=== PATIENT | male | born 1990 | race Caucasian/White ===

== ENCOUNTER 2024-04-05 13:04 | Emergency (ER) | payer OTHER, SELFPAY ==
--- NOTE | ~2024-04-05 | CT_ITS ---
EXAMINATION: CT ABDOMEN AND PELVIS WITH CONTRAST CLINICAL INFORMATION: Abdominal pain COMPARISON: None available. TECHNIQUE: Multidetector volumetric images were obtained from the superior aspect of the liver through the pubic symphysis following administration 85 mL of Omnipaque 350 intravenous contrast. Sagittal and coronal reformatted images were obtained on the technologist's workstation. Oral contrast: No This CT examination was performed using dose optimization techniques as appropriate, variously including the following: *Automated exposure control *Adjustment of mA and/or kV according to patient size (this includes techniques or standardized protocols for targeted exams where dose is matched to indication/reason for exam; i.e. extremities or head) *Use of iterative reconstruction technique DLP: 452 mGy-cm FINDINGS: LUNG BASES: The visualized lung bases are unremarkable. LIVER, GALLBLADDER, AND BILIARY TREE: The liver is mildly enlarged at 18.6 cm in cephalocaudad dimension with probable decreased attenuation suggesting steatosis. No focal hepatic lesion or biliary ductal dilatation is present. The gallbladder is unremarkable with no evidence of radiopaque gallstones, gallbladder wall thickening, or obvious pericholecystic inflammatory changes. PANCREAS: Unremarkable. SPLEEN: Unremarkable. ADRENAL GLANDS: Unremarkable. KIDNEYS AND URETERS: The kidneys are normal in size, shape, and attenuation. No hydronephrosis, hydroureter, or calculi seen. A benign left 0.6 cm Bosniak class I renal cyst is noted which requires no additional imaging or follow up. No solid renal masses are seen. No perinephric stranding. BLADDER: Unremarkable. GASTROINTESTINAL TRACT: The small and large bowel are unremarkable. The appendix appears to have been removed. ABDOMINAL WALL: No significant hernia is appreciated. LYMPH NODES: Normal. VASCULAR: Unremarkable. PELVIC VISCERA: Unremarkable. OSSEOUS STRUCTURES: Unremarkable. CT/CT abdomen pelvis w IV con IMPRESSION: 1. A cause for the patient's abdominal pain has not been found. 2. Incidental note made of mildly enlarged fatty liver and probable prior appendectomy. Fleischner guidelines were followed. Electronically signed by: Jose Carlos Potter MD 04/05/2024 08:01 PM EDT
[2024-04-05 13:24] VITALS: BP 134/89; PULSE 80; RESP 18; TEMP 37.1; O2SAT 100; BMI 24.4
--- NOTE | 2024-04-05 13:30 | ED.GENADULT ---
HPI - General Adult General Chief complaint: General Medical Stated complaint: hand numbness unable to walk Time Seen by Provider: 04/05/24 16:21 Source: patient Mode of arrival: ambulatory Limitations: no limitations History of Present Illness ED Provider: bobby SEPULVEDA narrative: Patient with no significant past medical history vomiting for last 3 days smokes cannabis has dust vomiting in the past but this time is worse than in the past did not eat much in last 3 days no bowel since yesterday vomitus has some bright blood no history of gastritis no history of pancreatitis no history of have pain in the upper abdominal area no fever no chills patient feel tingling and numb in upper extremities Related Data Previous Rx's ?Medication ?Instructions ?Recorded ondansetron 4 mg disintegrating 4 mg PO Q6-8H PRN nausea and 04/05/24 tablet vomiting #7 tabs Allergies Allergy/AdvReac Type Severity Reaction Status Date / Time No Known Allergies Allergy Verified 04/05/24 13:30 Review of Systems Review of Systems: Yes all other systems are reviewed and are negative PMFSH Social History Social History Smoked in Last 30 Days: Yes Use of substances other than those prescribed or required for medical reasons: Yes Substance Use Type: Marijuana Advance Directives: No Advance Directives Information Provided: No Do you have a plan to hurt others: No Plan Physical Exam ED Vital Signs: Vital Signs - 24 hr 04/05/24 13:24 04/05/24 15:29 04/05/24 18:28 Temperature 98.7 F 98.7 F 98.7 F Pulse Rate 80 94 73 Respiratory Rate 18 16 15 Blood Pressure 134/89 142/86 H 144/71 H Pulse Oximetry 100 100 96 Oxygen Delivery Method Room Air Room Air Nasal Cannula Oxygen Flow Rate 3 04/05/24 19:48 Temperature 98.8 F Pulse Rate 74 Respiratory Rate 15 Blood Pressure 110/60 Pulse Oximetry 100 Oxygen Delivery Method Room Air Oxygen Flow Rate BMI result Body Mass Index 24.4 Appearance: Alert. Oriented X3. No acute distress. Eyes: No pallor or icterus ENT: Pharynx normal. Oral Mucosa dry Neck: Normal inspection. Neck supple. CVS: Normal heart rate and rhythm. Pulses normal. Respiratory: No respiratory distress. Equal air entry bilateral, no wheezing/rales/rhonchi Abdomen: Soft and mild tenderness in epigastric area, Bowel sounds are present, no mass palpable, no CVA tenderness Skin: Skin warm and dry. Normal skin color. Normal skin turgor. Extremities: No lower extremity edema. No calf tenderness Neuro: Oriented X 3. No motor deficit. Course Course Course Narrative: RME performed by Giovanna Alvarado PA-C. Patient is a 33 year old assigned male at presenting to the emergency department with nausea, vomiting, bilateral hand and lower leg numbness. Patient states over the last 3-4 days he has been generally unwell with nausea, vomiting, upper extremity numbness, and lower extremity numbness. Detailed physical exam and review of systems are deferred to the aircraft electrical systems specialist. EKG, labs, imaging, and swabs ordered. Patient placed back in the waiting room pending room availability and results. Medications Administered Discontinued Medications Generic Name Dose Route Start Last Admin Trade Name Freq PRN Reason Stop Dose Admin Famotidine 20 mg 04/05/24 16:27 04/05/24 17:45 Famotidine/Pf 20 Mg/2 Ml Vial IVPUSH 04/05/24 16:28 20 mg ONCE ONE Administration Lactated Ringer's 1,000 mls @ 999 mls/hr 04/05/24 16:00 04/05/24 17:49 Lr IV 04/05/24 17:00 Infused .Q1H1M DILLAN Infusion Sodium Chloride 1,000 mls @ 999 mls/hr 04/05/24 16:22 04/05/24 19:49 Ns IV 04/05/24 17:22 Infused .Q1H1M ONE Infusion Sodium Chloride 1,000 mls @ 999 mls/hr 04/05/24 17:56 04/05/24 20:52 Ns IV 04/05/24 18:56 Infused .Q1H1M ONE Infusion Iohexol 100 ml 04/05/24 16:53 04/05/24 16:54 Iohexol 350 Mg/Ml 100 Ml Infus..Btl IV 04/05/24 16:54 85 ml ONCE ONE Administration Lorazepam 1 mg 04/05/24 16:27 04/05/24 17:45 Lorazepam 2 Mg/Ml Vial IVPUSH 04/05/24 16:28 1 mg ONCE ONE Administration Morphine Sulfate 4 mg 04/05/24 16:04 04/05/24 16:12 Morphine Sulfate 4 Mg/Ml Cartridge IVPUSH 04/05/24 16:05 4 mg ONCE ONE Administration Protocol Ondansetron HCl 4 mg 04/05/24 13:33 04/05/24 13:34 Ondansetron Odt 4 Mg Tab.Rapdis TRANSLINGU 04/05/24 13:34 4 mg ONCE ONE Administration Ondansetron HCl 4 mg 04/05/24 16:00 04/05/24 16:13 Ondansetron Hcl 4 Mg/2 Ml Vial IVPUSH 04/05/24 16:01 4 mg ONCE ONE Administration Potassium Bicarbonate 25 meq 04/05/24 20:40 04/05/24 20:51 Potassium Bicarbonate/Cit Ac 25 Meq Tablet.Eff PO 04/05/24 20:41 25 meq ONCE ONE Administration Medical Decision Making Medical Decision Making [facility] Narrative: Patient's cyclic vomiting/cannabis induced vomiting comes here for his vomiting for last 3 days improved after IV hydration lorazepam and antiemetics CT scan negative for acute patient is status post appendectomy. Patient taking p.o. fluids in the ER feeling much better no body spasm or tingling sensations will discharge patient home advised not to use cannabis Lab Data [facility] Lab Attestation statement: I reviewed the patient's lab results. 04/05/24 13:54 04/05/24 13:54 Labs: Lab Results 04/05/24 Range/Units 13:54 WBC 20.8 H (4.8-10.8) X10*3/uL RBC 5.06 (4.60-5.80) X10*6/uL Hgb 15.8 (14.0-18.0) g/dl Hct 43.6 (42.0-52.0) % MCV 86.2 (80.0-98.0) fL MCH 31.2 (27.0-33.0) pg MCHC 36.2 H (31.0-36.0) g/dl RDW 11.9 (11.0-16.0) % Plt Count 305 (160-400) X10*3/uL MPV 9.0 L (9.4-12.4) fL Immature Gran % (Auto) 0.5 H (0.0-0.4) % Neut % (Auto) 84.4 H (45-73) % Lymph % (Auto) 8.7 L (20-40) % [place] % (Auto) 6.3 (2-11) % Eos % (Auto) 0.0 (0-4) % Baso % (Auto) 0.1 (0-2) % Lymph # (Auto) 1.8 (1.2-4.9) X10*3/uL [place] # (Auto) 1.3 H (0.1-1.2) X10*3/uL Eos # (Auto) 0.0 (0.0-0.4) X10*3/uL Baso # (Auto) 0.0 (0.0-0.2) X10*3/uL Abs Immat Gran (auto) 0.11 H (0.00-0.03) X10*3/uL Absolute Neuts (auto) 17.6 H (2.0-8.3) x10*3/uL Absolute Nucleated RBC 0.000 (0.0-0.012) X10*3/uL Nucleated RBC % (auto) 0.0 (0.0-0.2) /100WBC Sodium 134 L (135-145) mmol/L Potassium 3.1 L (3.3-5.1) mmol/L Chloride 97 (96-108) mmol/L Carbon Dioxide 22 (22-29) mmol/L Anion Gap 18 (12-20) BUN 22 H (9-16) mg/dL Creatinine 0.90 (0.5-1.4) mg/dL Estim Creat Clear Calc 122.7 Estimated GFR > 60 Random Glucose 106 (60-115) mg/dL Calcium 10.5 H (8.4-10.2) mg/dL Magnesium 2.4 (1.6-2.6) mg/dL Total Bilirubin 1.3 H (0.0-1.0) mg/dL AST 21 (5-37) U/L ALT 21 (0-40) U/L Alkaline Phosphatase 71 (39-117) U/L Troponin I High Sens < 2.7 (<3.5-35.0) ng/L Total Protein 8.6 H (6.5-8.0) g/dL Albumin 5.2 H (3.5-5.0) g/dL Lipase 15 (8-78) U/L Influenza Type A (PCR) NEGATIVE (Negative) Influenza Type B (PCR) NEGATIVE (Negative) RSV RNA Qual (PCR) NEGATIVE (Negative) SARS-CoV-2 RNA (RT-PCR) NEGATIVE (Negative) Independent Interpretation I performed an independent interpretation of an: CT Scan Interpretation: No acute finding Radiology Impression Discussion of test interpretation with radiology: I have reviewed the radiologist's reading. Discharge Plan Discharge Clinical Impression: Cyclic vomiting syndrome, Cannabis abuse Patient Disposition: Home, Self-Care Instructions: Acute Nausea and Vomiting (ED), Cannabis Abuse (ED) Additional Instructions: Drink plenty of fluids Stop smoking cannabis that could be the cause for vomiting Follow with your PCP Take medicine for nausea every 6 hours as needed Prescriptions: New ondansetron 4 mg tablet,disintegrating 4 mg PO Q6-8H PRN (Reason: nausea and vomiting) Qty: 7 0RF Print Language: Albanian
--- NOTE | 2024-04-05 13:31 | ECG_ITS ---
Test Reason : WEANESS Blood Pressure : / mmHG Vent. Rate : 073 BPM Atrial Rate : 073 BPM P-R Int : 124 ms QRS Dur : 090 ms QT Int : 390 ms P-R-T Axes : 077 057 066 degrees QTc Int : 429 ms Normal sinus rhythm Normal ECG No previous ECGs available Referred By: Giovanna Alvarado Electronically Signed By:CANDI GRIFFIN
[2024-04-05] MEDS: Ondansetron ODT 4 MG TAB.RAPDIS TRANSLINGU (13:34)
[2024-04-05 13:59] LABS: MANUAL DIFF FLAG NO
[2024-04-05 14:01] LABS: Basophils Percent Auto 0.1 % (0-2); Hematocrit 43.6 % (42.0-52.0); Hemoglobin 15.8 g/dl (14.0-18.0); Imm Gran Abs Auto 0.11 X10*3/uL (0.00-0.03); Imm Gran Pct Auto 0.5 % (0.0-0.4); Lymphocytes Absolute Auto 1.8 X10*3/uL (1.2-4.9); Lymphocytes Percent Auto 8.7 % (20-40); Mean Corpuscular HGB Conc 36.2 g/dl (31.0-36.0); Mean Corpuscular Hemoglobin 31.2 pg (27.0-33.0); Mean Corpuscular Volume 86.2 fL (80.0-98.0); Monocytes Absolute Auto 1.3 X10*3/uL (0.1-1.2); Monocytes Percent Auto 6.3 % (2-11); Neutrophils Absolute Auto 17.6 x10*3/uL (2.0-8.3); Neutrophils Percent Auto 84.4 % (45-73); Platelet Count 305 X10*3/uL (160-400); Red Blood Count 5.06 X10*6/uL (4.60-5.80); Red Cell Distribution Width 11.9 % (11.0-16.0); White Blood Count 20.8 X10*3/uL (4.8-10.8)
[2024-04-05 14:17] LABS: Alanine Aminotransferase 21 U/L (0-40); Albumin Level 5.2 g/dL (3.5-5.0); Alkaline Phosphatase 71 U/L (39-117); Anion Gap 18 (12-20); Aspartate Amino Transferase 21 U/L (5-37); Bilirubin Total 1.3 mg/dL (0.0-1.0); Blood Urea Nitrogen 22 mg/dL (9-16); Calcium 10.5 mg/dL (8.4-10.2); Carbon Dioxide 22 mmol/L (22-29); Chloride 97 mmol/L (96-108); Creatinine Clr Calc Pharmacy 122.7; Estimated Glomerular Filt Rate > 60; Glucose Random 106 mg/dL (60-115); Magnesium 2.4 mg/dL (1.6-2.6); Potassium 3.1 mmol/L (3.3-5.1); Sodium 134 mmol/L (135-145); Total Protein 8.6 g/dL (6.5-8.0)
[2024-04-05 14:28] LABS: Troponin-I High Sensitivity < 2.7 ng/L (<3.5-35.0)
[2024-04-05 14:40] LABS: Influenza A PCR NEGATIVE (Negative); Influenza B PCR NEGATIVE (Negative); Resp Syncy Virus RNA Qual PCR NEGATIVE (Negative); SARS COV2 PCR INHOUSE NEGATIVE (Negative)
[2024-04-05 15:29] VITALS: BP 142/86; PULSE 94; RESP 16; TEMP 37.1; O2SAT 100
--- NOTE | 2024-04-05 15:30 | MHC.EDTECH ---
This pct just assumed care of patient ,vitals taken and patient was hooked up to color television console monitor ,Patient family member at bedside .
[2024-04-05] MEDS: Lactated Ringers 1,000 ML 999 ML IV (16:09)
[2024-04-05] MEDS: Morphine Sulfate 4 MG/ML CARTRIDGE IVPUSH (16:12)
[2024-04-05] MEDS: ondansetron HCL 4 MG/2 ML VIAL IVPUSH (16:13)
[2024-04-05 16:46] LABS: Lipase 15 U/L (8-78)
[2024-04-05] MEDS: iohexoL 350 MG/ML 100 ML INFUS..BTL IV (16:54)
[2024-04-05] MEDS: 0.9 % Sodium Chloride 1,000 ML 999 ML IV ×2 (17:45→19:51)
[2024-04-05] MEDS: LORazepam 2 MG/ML VIAL 1 MG IVPUSH (17:45)
[2024-04-05] MEDS: Famotidine/PF 20 MG/2 ML VIAL IVPUSH (17:45)
[2024-04-05 18:28] VITALS: BP 144/71; PULSE 73; RESP 15; TEMP 37.1; O2SAT 96
[2024-04-05 19:48] VITALS: BP 110/60; PULSE 74; RESP 15; TEMP 37.1; O2SAT 100
[2024-04-05] MEDS: Potassium Bicarbonate/Cit AC 25 MEQ TABLET.EFF PO (20:51)
[2024-04-05 21:24] VITALS: BP 117/61; PULSE 67; RESP 16; TEMP 37.2; O2SAT 99
[2024-04-05 21:38] VITALS: BP 117/61; PULSE 67; RESP 16; TEMP 37.2; O2SAT 99
== END 2024-04-05 21:40 | disposition home or self-care (01) ==
PROVIDERS: Physician Assistant Medical; Emergency Provider Internal Medicine; PCP Pediatrics
DX: R11.15 Cyclical vomiting syndrome unrelated to migraine (principal); F12.90 Cannabis use, unspecified, uncomplicated; R20.0 Anesthesia of skin; R26.2 Difficulty in walking, not elsewhere classified; R10.9 Unspecified abdominal pain; R53.1 Weakness; Z03.818 Encounter for observation for suspected exposure to other biological agents ruled out; Z79.899 Other long term (current) drug therapy
CPT/HCPCS: 0241U; 74177; 80053; 83690; 83735; 84484; 85025; 93005; 96361; 96374; 96375; 99284; 99285; J2060; J2270; J2405; J7120; Q9967

== ENCOUNTER 2024-04-08 15:36 | Emergency (ER) | payer OTHER, SELFPAY ==
[2024-04-08 15:55] VITALS: BP 153/78; PULSE 88; RESP 16; TEMP 36.9; O2SAT 98; BMI 24.4
--- NOTE | 2024-04-08 15:58 | ED.GENADULT ---
HPI - General Adult General Chief complaint: Abdominal Pain Stated complaint: sob, vomiting blood Time Seen by Provider: 04/08/24 18:59 History of Present Illness ED Provider: Jaison SEPULVEDA narrative: The patient is a 33-year-old male who presents complaining of vomiting abdominal pain. He was seen here for similar complaints 3 days ago and was felt to have a cyclic vomiting syndrome. When I asked the patient how many time something like this has happened to him in the past he reports ?a lot. ? He is a marijuana user. He has had an appendectomy. Related Data Previous Rx's ?Medication ?Instructions ?Recorded ondansetron 4 mg disintegrating 4 mg PO Q6-8H PRN nausea and 04/05/24 tablet vomiting #7 tabs Allergies Allergy/AdvReac Type Severity Reaction Status Date / Time No Known Allergies Allergy Verified 04/08/24 15:59 Review of Systems Review of Systems: Yes all other systems are reviewed and are negative [facility] Social History Social History Smoked in Last 30 Days: No Substance Use Type: Marijuana Advance Directives: No Advance Directives Information Provided: No Physical Exam ED Vital Signs: Vital Signs - 24 hr 04/08/24 15:55 04/08/24 19:09 04/08/24 21:50 Temperature 98.4 F 98.3 F 99.0 F Pulse Rate 88 74 70 Respiratory Rate 16 24 H 15 Blood Pressure 153/78 H 156/89 H 119/51 L Pulse Oximetry 98 100 98 Oxygen Delivery Method Room Air Room Air Room Air BMI result Body Mass Index 24.4 Const Other: The patient is a 33-year-old male who looks as if he is an ordinarily athletic and muscular 33-year-old. He looks worn out but not acutely toxic. HENMT Head: Yes normal to inspection Face and sinus: Yes normal facial exam Mouth: Normal oral and palatal mucosa present and moist mucous membranes Eyes Sclerae: sclerae normal Pupils: Equal, round and reactive pupils present EOM: EOMs intact bilaterally Neck Other: Moving his neck easily Resp Effort & Inspection: normal respiratory effort Auscultation: clear to auscultation bilaterally Cardio Rate: regular rate Rhythm: regular rhythm Heart sounds: S1 normal heart sound present and S2 normal heart sound present GI Other: The abdomen is flat, soft, and without focal tenderness. Skin General skin exam: no rashes or lesions noted Neuro Other: The patient seems fatigued but otherwise seems to have a normal mental status and moves his extremities normally. He seems neurologically intact Cranial nerves: Yes Equal, round and reactive pupils present Extrem Other: No peripheral edema. Extremities unremarkable. Course Course Course Narrative: This is a Rapid Medical Examination (RME) performed by Demar Bardales PA-C in triage. Full HPI, ROS, assessment and treatment plan per primary provider in the Main ED. 33 yo male here for eval of nausea, vomiting, epigastric abdominal pain x days. admits to one episode of blood in his vomit this morning. was seen in ED for same [address] abd/pelvis. he was noted to be hypokalemic and received repletion. did not follow up with specialist. was advised to come back due to continued symptoms. smokes marijuana. Plan: labs, UA, UDS Medications Administered Discontinued Medications Generic Name Dose Route Start Last Admin Trade Name Freq PRN Reason Stop Dose Admin Diphenhydramine HCl 25 mg 04/08/24 19:04 04/08/24 19:22 Diphenhydramine Hcl 50 Mg/Ml Vial IVPUSH 04/08/24 19:05 25 mg ONCE ONE Administration Droperidol 2.5 mg 04/08/24 19:03 04/08/24 19:21 Droperidol 5 Mg/2 Ml Vial IVPUSH 04/08/24 19:04 2.5 mg ONCE ONE Administration Lactated Ringer's 1,000 mls @ 999 mls/hr 04/08/24 19:15 04/08/24 21:15 Lr IV 04/08/24 20:15 Infused .Q1H1M DILLAN Infusion Ketorolac Tromethamine 10 mg 04/08/24 19:04 04/08/24 19:25 Ketorolac Tromethamine 15 Mg/Ml Vial IVPUSH 04/08/24 19:05 10 mg ONCE ONE Administration Medical Decision Making Medical Decision Making [facility] Narrative: The patient is a 33-year-old male who returns to the emergency room with a complaint of vomiting. He was seen here 3 days ago for similar complaint. He says that he has had multiple ER visits for similar problems in the past. He admits to marijuana use. This seems to be an exacerbation of what I suspect is cannabis hyperemesis syndrome. He has a high white count of 16.9. He had a white count of 20.8 3 days ago. At that time he had a negative CT scan of the abdomen and pelvis. He has a benign abdominal exam today. My suspicion for an acute surgical process is very low. The patient was treated symptomatically with droperidol, diphenhydramine, and IV fluids. He seemed to feel considerably better. I felt he was well enough for discharge. He is advised to follow up with his regular doctor. He is also advised to stop using marijuana. Lab Data 04/08/24 16:16 04/08/24 16:16 Labs: Lab Results 04/08/24 Range/Units 16:16 WBC 16.9 H (4.8-10.8) X10*3/uL RBC 4.76 (4.60-5.80) X10*6/uL Hgb 15.0 (14.0-18.0) g/dl Hct 40.9 L (42.0-52.0) % MCV 85.9 (80.0-98.0) fL MCH 31.5 (27.0-33.0) pg MCHC 36.7 H (31.0-36.0) g/dl RDW 11.9 (11.0-16.0) % Plt Count 314 (160-400) X10*3/uL MPV 9.1 L (9.4-12.4) fL Immature Gran % (Auto) 0.4 (0.0-0.4) % Neut % (Auto) 81.3 H (45-73) % Lymph % (Auto) 12.1 L (20-40) % [place] % (Auto) 5.9 (2-11) % Eos % (Auto) 0.1 (0-4) % Baso % (Auto) 0.2 (0-2) % Lymph # (Auto) 2.0 (1.2-4.9) X10*3/uL [place] # (Auto) 1.0 (0.1-1.2) X10*3/uL Eos # (Auto) 0.0 (0.0-0.4) X10*3/uL Baso # (Auto) 0.0 (0.0-0.2) X10*3/uL Abs Immat Gran (auto) 0.06 H (0.00-0.03) X10*3/uL Absolute Neuts (auto) 13.7 H (2.0-8.3) x10*3/uL Absolute Nucleated RBC 0.000 (0.0-0.012) X10*3/uL Nucleated RBC % (auto) 0.0 (0.0-0.2) /100WBC Sodium 137 (135-145) mmol/L Potassium 3.2 L (3.3-5.1) mmol/L Chloride 102 (96-108) mmol/L Carbon Dioxide 21 L (22-29) mmol/L Anion Gap 17 (12-20) BUN 11 (9-16) mg/dL Creatinine 0.93 (0.5-1.4) mg/dL Estim Creat Clear Calc 118.8 Estimated GFR > 60 Random Glucose 123 H (60-115) mg/dL Calcium 10.3 H (8.4-10.2) mg/dL Magnesium 2.0 (1.6-2.6) mg/dL Total Bilirubin 0.7 (0.0-1.0) mg/dL AST 25 (5-37) U/L ALT 23 (0-40) U/L Alkaline Phosphatase 65 (39-117) U/L Total Protein 8.1 H (6.5-8.0) g/dL Albumin 4.9 (3.5-5.0) g/dL Lipase 19 (8-78) U/L Urine Color Yellow Urine Appearance Clear Urine pH >= 9.0 (5.0-9.0) Ur Specific [place] 1.015 (1.005-1.025) Urine Protein Trace (Neg-Trace) mg/dL Urine Glucose (UA) Negative (Negative) mg/dL Urine Ketones 40 (Negative) mg/dL Urine Blood Negative (Negative) Urine Nitrite Negative (Negative) Ur Leukocyte Esterase Trace H (Negative) Urine RBC 0-2 (0-2) /HPF Urine WBC 0-5 (0-5) /HPF Ur Squamous Epith Cells 0-2 (0-2) /HPF Urine Bacteria None Seen (None Seen) Hyaline Casts 0-2 (0-2) /LPF Urine Opiates Screen Not Detected (Not Detect) Ur Buprenorphine Scrn Not Detected (Not Detect) ng/mL Ur Oxycodone Screen Not Detected (Not Detect) ng/mL Urine Methadone Screen Not Detected (Not Detect) ng/mL Urine Fentanyl Screen Not Detected (Not Detect) Ur Barbiturates Screen Not Detected (Not Detect) Ur Phencyclidine Scrn Not Detected (Not Detect) Ur Amphetamines Screen Not Detected (Not Detect) U Benzodiazepines Scrn Not Detected (Not Detect) Urine Cocaine Screen Not Detected (Not Detect) U Marijuana (THC) Screen POSITIVE H (Not Detect) Discharge Plan Discharge Clinical Impression: Hyperemesis Patient Disposition: Home, Self-Care Additional Instructions: Please rest and take it easy tonight. Please give consideration to the idea that your episodes of vomiting might be related to what is known as ?cannabis hyperemesis syndrome. I would recommend Googling this syndrome and reading more about it. I would strongly advise considering stopping cannabis use altogether for a few months to see if it has an affect on your vomiting episodes. Please follow up with your regular doctor. Return to the emergency room if worse. Prescriptions: No Action ondansetron 4 mg tablet,disintegrating 4 mg PO Q6-8H PRN (Reason: nausea and vomiting) Qty: 7 0RF Referrals: Nadine Krueger MD [Primary Care Provider] - (Hyperemesis) Discharge Date/Time: 04/08/24 21:56 Print Language: German
[2024-04-08 16:22] LABS: MANUAL DIFF FLAG NO
[2024-04-08 16:23] LABS: Basophils Percent Auto 0.2 % (0-2); Eosinophils Percent Auto 0.1 % (0-4); Hematocrit 40.9 % (42.0-52.0); Imm Gran Abs Auto 0.06 X10*3/uL (0.00-0.03); Imm Gran Pct Auto 0.4 % (0.0-0.4); Lymphocytes Percent Auto 12.1 % (20-40); Mean Corpuscular HGB Conc 36.7 g/dl (31.0-36.0); Mean Corpuscular Hemoglobin 31.5 pg (27.0-33.0); Mean Corpuscular Volume 85.9 fL (80.0-98.0); Mean Platelet Volume 9.1 fL (9.4-12.4); Monocytes Percent Auto 5.9 % (2-11); Neutrophils Absolute Auto 13.7 x10*3/uL (2.0-8.3); Neutrophils Percent Auto 81.3 % (45-73); Platelet Count 314 X10*3/uL (160-400); Red Blood Count 4.76 X10*6/uL (4.60-5.80); Red Cell Distribution Width 11.9 % (11.0-16.0); White Blood Count 16.9 X10*3/uL (4.8-10.8)
[2024-04-08 16:35] LABS: Appearance Urine Clear; Color Urine Yellow; Glucose Urine UA Negative (Negative); Leukocyte Esterase Urine Trace (Negative); Nitrite Urine Negative (Negative); PH >= 9.0 (5.0-9.0); Specific Gravity - Urine 1.015 (1.005-1.025); UMIC TRIGGER UACC YES; Urine Blood Negative (Negative); Urine Ketones 40 mg/dL (Negative); Urine Protein Trace mg/dL (Neg-Trace)
[2024-04-08 16:37] LABS: Amphetamine Screen Urine Not Detected (Not Detect); Barbiturates, Urine Not Detected (Not Detect); Benzodiazepines Screen Urine Not Detected (Not Detect); Buprenorphine Scr Not Detected (Not Detect); Cannabinoid Screen Urine POSITIVE (Not Detect); Cocaine Screen Urine Not Detected (Not Detect); Fentanyl, urine Not Detected (Not Detect); Methadone Screen, Urine Not Detected (Not Detect); Opiate Screen Urine Not Detected (Not Detect); Oxycodone Screen Urine Not Detected (Not Detect); Phencyclidine Screen Urine Not Detected (Not Detect)
[2024-04-08 16:40] LABS: Bacteria Urine None Seen (None Seen); Hyaline Casts Urine 0-2 /LPF (0-2); RBC Urine 0-2 /HPF (0-2); Squamous Epithelial Cell Urine 0-2 /HPF (0-2); WBC Urine 0-5 /HPF (0-5)
[2024-04-08 16:44] LABS: Alanine Aminotransferase 23 U/L (0-40); Albumin Level 4.9 g/dL (3.5-5.0); Alkaline Phosphatase 65 U/L (39-117); Anion Gap 17 (12-20); Aspartate Amino Transferase 25 U/L (5-37); Bilirubin Total 0.7 mg/dL (0.0-1.0); Blood Urea Nitrogen 11 mg/dL (9-16); Calcium 10.3 mg/dL (8.4-10.2); Carbon Dioxide 21 mmol/L (22-29); Chloride 102 mmol/L (96-108); Creatinine Clr Calc Pharmacy 118.8; Estimated Glomerular Filt Rate > 60; Glucose Random 123 mg/dL (60-115); Lipase 19 U/L (8-78); Potassium 3.2 mmol/L (3.3-5.1); Sodium 137 mmol/L (135-145); Total Protein 8.1 g/dL (6.5-8.0)
[2024-04-08 19:09] VITALS: BP 156/89; PULSE 74; RESP 24; TEMP 36.8; O2SAT 100
[2024-04-08] MEDS: Lactated Ringers 1,000 ML 999 ML IV (19:21)
[2024-04-08] MEDS: droPERidol 5 MG/2 ML VIAL 2.5 MG IVPUSH (19:21)
[2024-04-08] MEDS: diphenhydrAMINE HCL 50 MG/ML VIAL 25 MG IVPUSH (19:22)
[2024-04-08] MEDS: Ketorolac Tromethamine 15 MG/ML VIAL 10 MG IVPUSH (19:25)
[2024-04-08 21:50] VITALS: BP 119/51; PULSE 70; RESP 15; TEMP 37.2; O2SAT 98
== END 2024-04-08 21:56 | disposition home or self-care (01) ==
PROVIDERS: Physician Assistant Medical; Emergency Provider Emergency Medicine; PCP Pediatrics
DX: R11.2 Nausea with vomiting, unspecified (principal); R10.9 Unspecified abdominal pain; R06.02 Shortness of breath; Z79.899 Other long term (current) drug therapy
CPT/HCPCS: 36415; 80053; 80307; 81001; 83690; 83735; 85025; 96361; 96374; 96375; 99284; J1200; J1790; J1885; J7120